=== PATIENT | male | born 2000 | race Caucasian/White ===

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

== ENCOUNTER 2021-10-31 16:25 | Emergency (ER) | payer OTHER ==
[2021-10-31 16:29] VITALS: BP 117/69; PULSE 76; RESP 18; TEMP 97.8; BMI 19.9
[2021-10-31] MEDS ORDERED: ERYTHROMYCIN 0.5% OPHTHALMIC OINTMENT 3.5 GM TUBE OD ONE (16:55)
[2021-10-31] MEDS ORDERED: IBUPROFEN 600 MG TABLET (FP) PO ONE ×2 (16:55→17:07)
[2021-10-31] MEDS ORDERED: ERYTHROMYCIN 0.5% OPHTHALMIC OINTMENT 3.5 GM TUBE ONE (17:07)
== END 2021-10-31 17:13 | disposition home or self-care (01) ==
LOC: JERFT 16:25
DX: H00.011 Hordeolum externum right upper eyelid (principal)
CPT/HCPCS: 99283-25